=== PATIENT | male | born 1935 | race African-American/Black ===

== ENCOUNTER 2019-08-03 08:16 | Inpatient (IN) ==
[2019-08-03] MEDS ORDERED: ONDANSETRON 4 MG/2 ML VIAL IV PRN (11:09)
[2019-08-03] MEDS ORDERED: diphenhydrAMINE CAP 25 MG CAPSULE PO PRN ×2 (11:09→11:14)
[2019-08-03] MEDS ORDERED: ACETAMINOPHEN 325 MG TABLET PO PRN ×2 (11:09→11:14)
[2019-08-03] MEDS ORDERED: DEXTROSE 10% 250 ML BAG IV PRN (11:09)
[2019-08-03] MEDS ORDERED: ALUMINUM/MAGNES/SIMETH MAX STR 30 ML UDCUP PO PRN (11:09)
[2019-08-03] MEDS ORDERED: hydrALAZINE 20 MG/1 ML VIAL IV PRN (11:09)
[2019-08-03] MEDS ORDERED: ZALEPLON 5 MG CAPSULE PO PRN (11:09)
[2019-08-03] MEDS ORDERED: BISACODYL 5 MG TABLET PO PRN (11:09)
[2019-08-03] MEDS ORDERED: GLUCAGON 1 MG VIAL IM PRN (11:09)
[2019-08-03] MEDS ORDERED: PROMETHAZINE 25 MG TABLET PO PRN (11:09)
[2019-08-03] MEDS ORDERED: SODIUM CHLORIDE 0.9% 1,000 ML IV PRN (11:14)
[2019-08-03] MEDS: metOLazone 5 MG TABLET PO SCH (13:28)
[2019-08-03] MEDS ORDERED: SILDENAFIL 20 MG TABLET PO SCH (15:00)
[2019-08-03] MEDS: FUROSEMIDE 80 MG TABLET PO SCH (16:55)
[2019-08-03] MEDS: SILDENAFIL 20 MG TABLET PO SCH ×2 (16:56→22:23)
[2019-08-03] MEDS: PANTOPRAZOLE 40 MG TABLET PO SCH (22:22)
[2019-08-03] MEDS: hydrALAZINE 25 MG TABLET PO SCH (22:22)
[2019-08-03] MEDS: carvediloL 25 MG TABLET PO SCH (22:23)
[2019-08-04 05:50] LABS: Basophils % 0.5 % (0.0-0.8); Eosinophils # 0.1 10*3/uL (0.0-0.87); Eosinophils % 2.6 % (0.00-10.9); Hematocrit 24.3 VOL% (42.0-52.0); Hemoglobin 7.6 GM/DL (14.0-18.0); Immature Granulocytes % 0.5 %; Immature Granulocytes Absolute 0.02 #; Lymphocytes # 1.4 10*3/uL (1.4-4.0); Lymphocytes % 34.7 % (21.2-54.2); Mean Corpuscular HGB Conc 31.3 GM/DL (32-36); Mean Corpuscular Volume 93.5 FL (87-102); Mean Platelet Volume 10.4 FL (9.6-12.0); Monocytes % 9.5 % (1.7-12.7); Neutrophils % 52.2 % (38.7-73.9); Platelet Count 163 T/CUMM (130-400); Red Cell Distribution Width 17.2 % (9.3-17.3); White Blood Count 3.9 T/CUMM (4-12)
[2019-08-04 06:09] LABS: Albumin 2.1 G/DL (3.4-5.0); Bilirubin,Total 0.8 MG/DL (0.2-1.0); Calcium 8.1 MG/DL (8.5-10.1); Osmolality,Calculated 322.3 MOS/KG (273-304); Total Protein 5.6 G/DL (6.4-8.3)
[2019-08-04] MEDS ORDERED: LEVOTHYROXINE 25 MCG TABLET PO SCH (07:00)
[2019-08-04] MEDS ORDERED: LACTATED RINGERS 1,000 ML IV SCH (07:00)
[2019-08-04] MEDS ORDERED: LIDOCAINE 2% 5 ML VIAL ONE (09:00)
[2019-08-04] MEDS ORDERED: FERROUS SULFATE 325 MG TABLET PO SCH (09:00)
[2019-08-04] MEDS ORDERED: PANTOPRAZOLE 40 MG TABLET PO SCH (09:00)
[2019-08-04] MEDS ORDERED: propofoL 200 MG/20 ML VIAL IV ONE (09:00)
[2019-08-04] MEDS ORDERED: FUROSEMIDE 40 MG TABLET ONE (09:59)
[2019-08-04] MEDS: carvediloL 25 MG TABLET PO SCH ×2 (10:03→17:01)
[2019-08-04] MEDS: hydrALAZINE 25 MG TABLET PO SCH (10:04)
[2019-08-04] MEDS: FUROSEMIDE 80 MG TABLET PO SCH ×2 (10:04→17:01)
[2019-08-04] MEDS: PANTOPRAZOLE 40 MG TABLET PO SCH (10:05)
[2019-08-04] MEDS: metOLazone 5 MG TABLET PO SCH (10:05)
[2019-08-04] MEDS: SILDENAFIL 20 MG TABLET PO SCH ×2 (10:05→15:06)
[2019-08-04] MEDS ORDERED: SODIUM CHLORIDE 0.9% 1,000 ML IV PRN (15:32)
[2019-08-04 15:48] VITALS: BP 137/50
== END 2019-08-04 16:25 | disposition home or self-care (01) | DRG 378 ==
LOC: N.EDINP 08:16 → N.3E 10:44
PROVIDERS: ADMIT Internal Medicine Nephrology; ATTEND Internal Medicine Nephrology